=== PATIENT | male | born 1975 | race Caucasian/White ===

== ENCOUNTER 2019-04-12 11:48 | Emergency (ER) | payer MEDICAID ==
[2019-04-12] MEDS ORDERED: MOTRIN 600 MG PO ONE (12:33)
[2019-04-12] MEDS ORDERED: MOTRIN 600 MG ONE (12:36)
--- NOTE | 2019-04-12 12:39 | ERPHSYRPT ---
- History of Present Illness Time Seen by Provider: 04/12/19 12:23 Source: patient Exam Limitations: no limitations Patient Subjective Stated Complaint: pt reports bilat groin pain that started . pt states pain is relieved from compression bandgaes. Triage Nursing Assessment: pt is aox3, pupils perrl, afebrile, resps easy and non labored, cap refill < 3 seconds, radial pulses strong and equal, tenderness to bilat groin, pt skin is pale warm dry. Physician History: pt states he [facility] about 4 weeks ago and since has had swelling and pain in his right groin; denies fever, chills, nausea, vomiting; admits to increased time to void for the past 4 weeks, an intermittent chronic cough for years and migraines since he was 8 years old. Allergies/Adverse Reactions: strawberry Adverse Reaction (Verified 04/12/19 12:06) Home Medications: No Reportable Medications [No Reported Medications] 04/12/19 [History] Hx Tetanus, Diphtheria Vaccination/Date Given: No Hx Influenza Vaccination/Date Given: No Hx Pneumococcal Vaccination/Date Given: No Immunizations Up to Date: Yes - Past Medical History Pertinent Past Medical History: Yes Neurological History: Migraines Musculoskeletal History: Arthritis, Other Psycho-Social History: Anxiety, Panic Disorder, Other Other Medical History: PSYCHOTIC - Past Surgical History Past Surgical History: Yes Other Surgical History: weak eye muscle as a child - Social History Smoking Status: Current every day smoker How long have you smoked: 21 Exposure to second hand smoke: Yes Alcohol Use: Socially Drug Use: marijuana Patient Lives Alone: No Significant Family History: no pertinent family hx - Review of Systems Constitutional: No Fever Respiratory: Cough (chronic) Abdominal/Gastrointestinal: No Nausea, No Vomiting Genitourinary Symptoms: Other (increased time to void for the past 4 weeks; right sided groin pain for the past 4 weeks.) Neurological: Headache (chronic) All Other Systems: Reviewed and Negative - Nursing Vital Signs Nursing Vital Signs: Initial Vital Signs Temperature 98.4 F 04/12/19 11:52 Pulse Rate 112 H 04/12/19 11:52 Respiratory Rate 04/12/19 11:52 Blood Pressure 145/87 04/12/19 11:52 O2 Sat by Pulse Oximetry 100 04/12/19 11:52 Pain Scale Pain Intensity 2 - Physical Exam General Appearance: alert Eye Exam: PERRL/EOMI Ears, Nose, Throat Exam: other (cerumen occlusion of both ears.) Neck Exam: normal inspection Respiratory Exam: lungs clear Cardiovascular Exam: normal heart sounds Gastrointestinal/Abdomen Exam: soft, normal bowel sounds Male Genital Exam: hernia mass (right inguinal - able to reduce.), testicular tenderness (R) (mild) Back Exam: normal range of motion Extremity Exam: normal inspection Neurologic Exam: alert, cooperative Skin Exam: warm, dry SpO2 Interpretation: normal SpO2: 100 O2 Delivery: Room Air - Course Nursing assessment & vital signs reviewed: Yes Ordered Tests: Active Orders 24 hr Category Date Time Status IV Insertion STAT Care 04/12/19 12:35 Active TESTICLE [US] Stat Exams 04/12/19 12:33 Taken UA W/RFX UR CULTURE Stat Lab 04/12/19 13:01 Completed Medication Summary Discontinued Medications Generic Name Dose Route Start Last Admin Trade Name Freq PRN Reason Stop Dose Admin Ibuprofen 600 mg 04/12/19 12:33 04/12/19 12:37 Motrin 600 Mg PO 04/12/19 12:34 600 mg STAT ONE Administration Ibuprofen Confirm 04/12/19 12:36 Motrin 600 Mg Administered 04/12/19 12:37 Dose 600 mg .ROUTE .STK-MED ONE Lab/Rad Data: Laboratory Results 04/12/19 Range/Units 13:01 Urine Color STRAW (YELLOW) Urine Appearance CLEAR (CLEAR) Urine pH 6.0 (5-6) Ur Specific Bagley 1.002 (1.005-1.025) Urine Protein NEGATIVE (Negative) Urine Ketones NEGATIVE (NEGATIVE) Urine Blood NEGATIVE (0-5) Anam/ul Urine Nitrite NEGATIVE (NEGATIVE) Urine Bilirubin NEGATIVE (NEGATIVE) Urine Urobilinogen NEGATIVE (0-1) mg/dL Ur Leukocyte Esterase NEGATIVE (NEGATIVE) Urine WBC (Auto) NONE SEEN (0-5) /HPF Urine RBC (Auto) NONE SEEN (0-2) /HPF U Epithel Cells (Auto) NONE (FEW) /HPF Urine Bacteria (Auto) NONE (NEGATIVE) /HPF Urine Culture Reflexed NO (NO) Urine Glucose NEGATIVE (NEGATIVE) mg/dL - Progress Progress: unchanged Discussed with Dr.: Yee (pt to call office tomorrow for an appointment.) - Departure Departure Disposition: Home Clinical Impression: Right inguinal hernia Condition: Fair Critical Care Time: No Referrals: SADE FISHMAN MD [Primary Care Provider] - Instructions: Groin Hernia (DC) Additional Instructions: call dr correa's office tomorrow for an appointment([phone]). avoid any exertional activity.
[2019-04-12 13:07] LABS: Appearance CLEAR (CLEAR); Bilirubin NEGATIVE (NEGATIVE); Blood NEGATIVE Ery/ul (0-5); Glucose NEGATIVE (NEGATIVE); Ketones NEGATIVE (NEGATIVE); Leukocyte Esterase NEGATIVE (NEGATIVE); Nitrite NEGATIVE (NEGATIVE); Protein,Urine Dip NEGATIVE (Negative); Specific Gravity 1.002 (1.005-1.025); Urobilinogen NEGATIVE mg/dL (0-1)
[2019-04-12 13:11] LABS: RBC NONE SEEN /HPF (0-2); WBC NONE SEEN /HPF (0-5)
[2019-04-12 14:46] VITALS: BP 133/80; PULSE 90
[2019-04-12 15:02] VITALS: O2SAT 100
--- NOTE | 2019-04-12 18:53 | XRAY ---
Indication: Right testicular tenderness since 2018. Two-dimensional testicular sonogram performed. Comparison: None Both testicles are homogeneous in echogenicity with normal color flow. Right testicle measures 4.8 x 2.5 x 3.1 cm and the left measures 4.9 x 2.2 x 3.3 cm. Left and right epididymis sonographically unremarkable. Incidental mild right-sided varicocele. No suspicious extratesticular mass or hydrocele. Impression: Mild right varicocele. Remaining sonogram is negative. Comment: I gave telephone report to Dr. Garcia in the ER at 1848 hrs. on April 12, 2019.
== END 2019-04-12 15:13 | disposition home or self-care (01) ==
LOC: ED 11:48
DX: K40.90 Unilateral inguinal hernia, without obstruction or gangrene, not specified as recurrent (principal)
CPT/HCPCS: 36000; 76870; 81001; 99284; A9270-GY

== ENCOUNTER 2019-05-11 10:27 | Day surgery (SDC) | payer MEDICAID ==
--- NOTE | 2019-05-11 08:42 | HP ---
DATE OF SURGERY: 05/11/2019 HISTORY OF PRESENT ILLNESS: The patient is a 44 year-old with golf ball sized bulge since late February. He had been doing a light workout, pushups in skilled nursing at the time when he developed it and then later that night coughing and it popped out. He had inguinal hernia. I felt he would benefit from repair. PAST MEDICAL HISTORY: History of low blood sugar in the past. Arthritis and migraines in the past. PAST SURGICAL HISTORY: Eye surgery as a child. He denied any inguinal surgery in the past. MEDICATIONS: None on a regular basis. ALLERGIES: NKDA. STRAWBERRY. FAMILY HISTORY: Heart disease, arthritis. SOCIAL HISTORY: Less than one pack per day smoker. Reports alcohol use sometimes denies abuse. REVIEW OF SYSTEMS: Fourteen systems reviewed. No chest pain or palpitations other systems negative or noncontributory as above and per preadmission questionnaire. PHYSICAL EXAMINATION: GENERAL: No acute distress. HEENT: Sclerae nonicteric. NECK: No JVD. CHEST: Equal excursion, nonlabored breathing. CVS: Regular rate and rhythm. ABDOMEN: Soft. No peritoneal signs. He does have right inguinal hernia on exam. EXTREMITIES: No significant edema. NEURO: Alert, oriented, moving extremities symmetrically. No gross motor deficits noted. IMPRESSION: Right inguinal hernia. Discussed options. Given the size, I feel the patient will benefit from open repair. Risks and benefits explained in detail but not limited to bleeding or infection, risk of swelling or firmness around the incision, risk of ingrown hair or suture reaction of the skin incision, risk of mesh infection possibly requiring removal, risk of hematoma or seroma formation, black and blue bruising, remote risk of vas or vascular issues or injury, risk of aches, pains, burning, numbness lower abdomen, groin, thigh or scrotal area possibly half-way in nature up to 10 to 12%, possible high risk of intermittent ache or twinge, possibly interfering with sexual function from the aches and pain standpoint, general risk of anesthesia, deep venous thrombosis, pulmonary embolism, pneumonia, overall risk of hernia recurrence but not limited to. He understands and agrees to the planned procedure, will proceed with open repair right inguinal hernia with mesh as an outpatient.
[~2019-05-11 10:27] MED LIST: CEFAZOLIN 2 GM-D5W BAG** 2 GM/50 ML ML IV SCH; Lactated Ringers 1,000 ML IV ONE; Lactated Ringers 1,000 ML IV SCH; Sensorcaine 0.25% 10 ML ONE
[2019-05-11] MEDS ORDERED: CEFAZOLIN 2 GM-D5W BAG** 2 GM/50 ML ML IV ONE (11:01)
[2019-05-11] MEDS ORDERED: Lactated Ringers 1,000 ML IV ONE (11:01)
[2019-05-11] MEDS ORDERED: SUBLIMAZE 250 MCG/5 ML ONE (12:36)
[2019-05-11] MEDS ORDERED: Versed 2 MG/2 ML Injection ONE (12:36)
[2019-05-11] MEDS ORDERED: DIPRIVAN 200 MG/20 ML IV ONE (12:36)
[2019-05-11] MEDS ORDERED: Xylocaine-Mpf 2% 5 Ml Vial ONE (12:37)
[2019-05-11] MEDS ORDERED: TORAdol 30 mg Injection ONE (13:45)
[2019-05-11] MEDS ORDERED: SUBLIMAZE 100 MCG/2 ML ONE ×2 (13:53→14:34)
[2019-05-11] MEDS ORDERED: MORPHINE SULFATE 10 MG/ML ONE (14:34)
--- NOTE | 2019-05-11 15:03 | OP ---
SURGERY DATE/TIME: 05/11/2019 1303 PREOPERATIVE DIAGNOSIS: Right inguinal hernia. POSTOPERATIVE DIAGNOSIS: Right inguinal hernia including cord lipoma. PROCEDURES: 1) Open repair right inguinal hernia with mesh. 2) Excision of cord lipoma. SURGEON: Dr. Steven Denise. PACKING MACHINE TENDER: Anabel Groves, Medical Student III. ANESTHESIA: General. ESTIMATED BLOOD LOSS: Minimal. INDICATIONS: As noted above. Risks and benefits explained in detail and not limited to and consent obtained. The site was confirmed and marked in the preoperative holding area. DESCRIPTION OF PROCEDURE AND FINDINGS: The patient is taken to the operating room. General anesthesia induced. Inguinal area groin prepped and draped in usual sterile fashion. After official time out and no disagreement with planned procedure, a transverse incision made right inguinal area. Dissection carried down through Murphy fascia. Small inferior epigastric vein divided and clamped with Vicryl ties. Dissection carried down through Murphy fascia. External oblique split in the direction of its fibers towards the external ring carefully protecting the visible ilioinguinal and iliohypogastric nerve branches. The cord is gently mobilized up off the pubic tubercle with Rhea drain. The patient had a direct and indirect component as well as lateral cord lipoma. Again, the cord was gently mobilized up off the pubic tubercle with Dundee drain. At this point cremasteric fibers carefully . Moderate sized indirect hernia sac was carefully cleared from the rest of the cord structures. Back towards the internal ring it was opened and noted to be devoid of contents and then high ligated with 0 Prolene, transected and passed off. A lateral cord lipoma was carefully away from the cord structures and ligated with 3-0 Vicryl suture ligature and passed off. Again, this was well away from the vas and cord vessels. At this point the patient's direct component was imbricated downward with 0 PDS to a normal sized internal ring. Once this was accomplished, I felt would benefit from mesh repair. A 2 x 4 piece of mesh cut to appropriate dimensions with the keyhole cut, secured to the fascia overlying pubic tubercle with 0 Prolene run along the Orestes's ligament along the shelving portion of the inguinal ligament. 0 Prolene used to transfix the rectus fascia medially, 0 Vicryl used to transfix the aponeurosis to the internal oblique superiorly. Tails of the mesh were tacked together laterally with the internal ring with 0 Prolene. The new internal ring was felt to be not too tight. Good hemostasis noted. The wound irrigated out. External oblique closed with 0 Vicryl. Murphy closed with 3-0 Vicryl. Subcu closed with 3-0 Vicryl. Skin closed with 4-0 Vicryl. Steri-Strips and sterile dressing applied. 0.25% Marcaine local had been injected along the skin incision fascial defect. The patient tolerated the procedure well. There were no immediate complications. 0.25% Marcaine local had been injected laterally back towards the origin of the inguinal nerve back towards the anterior iliac spine, along the skin incision. Steri-Strips and sterile dressing applied. The patient tolerated the procedure well. There were no immediate complications. There was no family available to discuss the findings with out in the waiting area.
[2019-05-11] MEDS ORDERED: NORCO 5/325 MG PO PRN (15:30)
[2019-05-11] MEDS ORDERED: NORCO 5/325 MG ONE (15:31)
[2019-05-11 16:14] VITALS: O2SAT 99
[2019-05-11 16:24] VITALS: BP 143/80; PULSE 83
== END 2019-05-11 16:35 | disposition home or self-care (01) ==
LOC: SDC 10:27
PROVIDERS: ATTEND Surgery
DX: K40.90 Unilateral inguinal hernia, without obstruction or gangrene, not specified as recurrent (principal)
CPT/HCPCS: 88304; J0690; J1885; J2250; J2270; J2704; J3010; A9270-GY